=== PATIENT | female | born 1970 | race Caucasian/White ===

== ENCOUNTER 2020-07-08 09:33 | Outpatient (CLI) | payer OTHER, SELFPAY | END 2020-07-08 09:34 | disposition home or self-care (01) | LOC: ANHBWCAUD 09:34 | PROVIDERS: PCP Internal Medicine; Visit Provider Internal Medicine | DX: H91.90 Unspecified hearing loss, unspecified ear (principal) | CPT/HCPCS: 92557; 92567 ==